=== PATIENT | female | born 1995 | race Caucasian/White ===

== ENCOUNTER 2021-06-18 07:35 | Emergency (ER) | payer OTHER, BC, SELFPAY ==
[2021-06-18 07:44] VITALS: BP 127/81; PULSE 94; RESP 17; TEMP 36.9; O2SAT 100
--- NOTE | 2021-06-18 08:08 | ED_ITS ---
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 Place: work Patient tetanus UTD: Yes Context: accidental Associated symptoms: none Related Data Allergies Allergy/AdvReac Type Severity Reaction Status Date / Time No Known Allergies Allergy Unverified 11/16/16 18:00 Review of Systems Review of Systems: All systems reviewed & are unremarkable except as noted in HPI and below Exam Const: General: no acute distress Orientation/consciousness: patient oriented x3 HENMT: Head: normal to inspection Cardio: Rate: regular rate Rhythm: regular rhythm GI: GI Palp: Yes Soft to palpation Skin: General skin exam: normal color Rashes: no rashes Neuro: General: patient oriented x3 and moves all extremities Extrem: Other: superficial avulsion tip of right index finger, bleeding controlled Psych: Appearance: grossly normal Mental Status: mental status grossly normal Affect: normal affect Attitude: cooperative Course Vital Signs Vital signs: Vital Signs Temperature 98.4 F 06/18/21 07:44 Pulse Rate 94 06/18/21 07:44 Respiratory Rate 17 06/18/21 07:44 Blood Pressure 127/81 06/18/21 07:44 Pulse Oximetry 100 06/18/21 07:44 Temperature 98.4 F 06/18/21 07:44 Pulse Rate 94 06/18/21 07:44 Respiratory Rate 17 06/18/21 07:44 Blood Pressure 127/81 06/18/21 07:44 Pulse Oximetry 100 06/18/21 07:44 Discharge Plan Discharge Clinical Impression: Avulsion of skin Patient Disposition: Home, Self-Care Condition: Stable Instructions: Antibiotic Form, Skin Avulsion (ED) Follow-up/Referrals: PHYSICIAN,PRINT PRODUCTION COORDINATOR [Primary Care Provider] -
== END 2021-06-18 08:17 | disposition home or self-care (01) ==
PROVIDERS: Emergency Provider Emergency Medicine
DX: S61.210A Laceration without foreign body of right index finger without damage to nail, initial encounter (principal); W31.82XA Contact with other commercial machinery, initial encounter; Y93.G1 Activity, food preparation and clean up
CPT/HCPCS: 99282